=== PATIENT | female | born 1985 | race Caucasian/White ===

== ENCOUNTER → 2016-12-03 | Outpatient (CLI) | payer OTHER ==
[~2016-12-03] VITALS: Ht 165.1 cm; Wt 77.2 kg
[~2016-12-03] MED LIST: Motrin PO; PREFERA-OB P1 TABLET PO; Percocet 5/325,Endoc PO
[2016-12-03 11:08] VITALS: BP 130/78
== END | disposition home or self-care (01) ==
LOC: IVINF 10:50
DX: Z31.82 Encounter for Rh incompatibility status (principal); Z3A.28 28 weeks gestation of pregnancy
CPT/HCPCS: 96372; J2790

== ENCOUNTER 2017-01-20 17:13 | Outpatient (CLI) | payer OTHER ==
[2017-01-20 17:41] VITALS: BP 127/85
[2017-01-20 18:05] VITALS: BP 128/91
[2017-01-20 18:30] VITALS: BP 128/87
[2017-01-20 18:32] LABS: EOSINOPHIL (%) 1.3 % (0-5); EOSINOPHIL COUNT 0.2 K/uL (0-0.3); HEMATOCRIT 31.2 % (36.0-46.0); IMMATURE GRANULOCYTE (%) 0.9 % (0.0-0.7); IMMATURE GRANULOCYTE COUNT 0.1 K/uL; INSTRUMENT ABS NEUTROPHIL CT 11.6 K/uL; LYMPHOCYTE COUNT 2.4 K/uL (1.0-2.8); MCH 23.5 PG (29.0-34.0); MCHC 31.7 G/DL (30.0-36.0); MCV 74.1 FL (83-99); MEAN PLAT.VOLUME 10.4 uM^3 (9.5-12.4); MONOCYTE (%) 6.2 % (3-12); NEUTROPHIL (%) 75.9 % (45-76); NEUTROPHIL COUNT 11.6 K/uL (1.8-6.4); PLATELET COUNT 293 K/uL (156-360); RBC DIS.WIDTH-CV 14.2 % (11.8-14.6); RBC DIS.WIDTH-SD 37.8 % (39-53); RED BLOOD COUNT 4.21 M/uL (3.80-5.20); WHITE BLOOD COUNT 15.3 K/uL (4.1-10.2)
[2017-01-20 18:36] LABS: ANION GAP 9 MEQ/L (2-14); CHLORIDE 106 MEQ/L (99-109); POTASSIUM 3.7 MEQ/L (3.7-5.4); SAMPLE HEMOLYSIS CHECK 0; SAMPLE ICTERIC CHECK 0; SAMPLE LIPEMIA CHECK 0; SODIUM 136 MEQ/L (136-147); TOTAL BILIRUBIN 0.3 MG/DL (0.0-1.0)
[2017-01-20 18:42] LABS: ALKALINE PHOSPHATASE 115 IU/L (3-129); GFR ESTIMATE (CALCULATED) > 59 mL/min/; GLUCOSE 87 mg/dL (70-99); UREA NITROGEN (BUN) 7 mg/dL (9-23)
[2017-01-20 19:13] VITALS: BP 124/90
[2017-01-20 19:56] LABS: UR CREATININE CONCENTRATION 25.6 MG/DL
== END 2017-01-20 19:55 | disposition home or self-care (01) ==
LOC: LDRP-OP → 2WEST 17:16 → LDRP-OP 03-21 13:52
PROVIDERS: Advanced Practice Midwife
DX: O26.893 Other specified pregnancy related conditions, third trimester (principal); R03.0 Elevated blood-pressure reading, without diagnosis of hypertension; Z3A.35 35 weeks gestation of pregnancy; O34.219 Maternal care for unspecified type scar from previous cesarean delivery
CPT/HCPCS: 59025; 80053; 82570; 84156; 85025; G0378

== ENCOUNTER 2017-02-23 16:17 | Inpatient (IN) | payer OTHER ==
[~2017-02-23] VITALS: Ht 162.6 cm; Wt 85.0 kg
[2017-02-23] VITALS (7 sets, daily range): BP systolic 124–141; BP diastolic 88–102
[2017-02-23 18:27] LABS: BASOPHIL COUNT 0.1 K/uL (0-0.1); CHLORIDE 108 mEq/L (99-109); EOSINOPHIL COUNT 0.1 K/uL (0-0.3); HEMATOCRIT 31.1 % (36.0-46.0); IMMATURE GRANULOCYTE (%) 0.8 % (0.0-0.7); IMMATURE GRANULOCYTE COUNT 0.1 K/uL; INSTRUMENT ABS NEUTROPHIL CT 9.1 K/uL; LYMPHOCYTE COUNT 2.4 K/uL (1.0-2.8); MCH 21.3 PG (29.0-34.0); MCHC 30.9 G/DL (30.0-36.0); MEAN PLAT.VOLUME 11.3 uM^3 (9.5-12.4); MONOCYTE COUNT 0.9 K/uL (0-0.8); NEUTROPHIL (%) 72.2 % (45-76); NEUTROPHIL COUNT 9.1 K/uL (1.8-6.4); NRBC (%) 0.2 /100 WBC (0-0); PLATELET COUNT 319 K/uL (156-360); RBC DIS.WIDTH-CV 15.9 % (11.8-14.6); RBC DIS.WIDTH-SD 39.3 % (39-53); RED BLOOD COUNT 4.51 M/uL (3.80-5.20); WHITE BLOOD COUNT 12.7 K/uL (4.1-10.2)
[2017-02-23 18:28] LABS: SODIUM 137 mEq/L (136-147)
[2017-02-23 18:30] LABS: GLUCOSE 87 mg/dL (70-99)
[2017-02-23 18:31] LABS: ANION GAP 10 MEQ/L (2-14)
[2017-02-23 18:32] LABS: TOTAL BILIRUBIN 0.2 mg/dL (0.0-1.0)
[2017-02-23 18:33] LABS: ALKALINE PHOSPHATASE 147 IU/L (3-129); GFR ESTIMATE (CALCULATED) > 59 mL/min/
[2017-02-23 18:35] LABS: UREA NITROGEN (BUN) 10 mg/dL (9-23)
[2017-02-23 18:36] LABS: URIC ACID 4.9 mg/dL (3.1-9.2)
[2017-02-23 19:15] LABS: LACTATE DEHYDROGENASE 242 IU/L (20-246)
[2017-02-23 19:34] LABS: UR CREATININE CONCENTRATION 38.2 MG/DL
[2017-02-24] VITALS (20 sets, daily range): BP systolic 116–139; BP diastolic 71–101
[2017-02-25 03:14] VITALS: BP 108/58
[2017-02-25 07:10] VITALS: BP 122/76
[2017-02-25 09:20] LABS: EOSINOPHIL (%) 0.2 % (0-5); IMMATURE GRANULOCYTE (%) 0.7 % (0.0-0.7); IMMATURE GRANULOCYTE COUNT 0.1 K/uL; INSTRUMENT ABS NEUTROPHIL CT 13.3 K/uL; LYMPHOCYTE COUNT 2.4 K/uL (1.0-2.8); MCH 21.2 PG (29.0-34.0); MCHC 30.4 G/DL (30.0-36.0); MCV 69.9 FL (83-99); MEAN PLAT.VOLUME 10.7 uM^3 (9.5-12.4); MONOCYTE (%) 5.9 % (3-12); NEUTROPHIL (%) 78.7 % (45-76); NEUTROPHIL COUNT 13.3 K/uL (1.8-6.4); PLATELET COUNT 285 K/uL (156-360); RBC DIS.WIDTH-CV 15.9 % (11.8-14.6); RED BLOOD COUNT 3.72 M/uL (3.80-5.20); WHITE BLOOD COUNT 16.9 K/uL (4.1-10.2)
[2017-02-25 11:00] VITALS: BP 125/79
[2017-02-26 08:00] VITALS: BP 131/93
[2017-02-26] MEDS ORDERED: IBUPROFEN800 MG PO (08:57)
[2017-02-26] MEDS ORDERED: DOCUSATE SODIU100 MG PO (08:58)
[2017-02-26] MEDS ORDERED: ENDOCET 5-3251 EACH PO (08:58)
[2017-02-26] MEDS ORDERED: IRON325 M1 PO (09:00)
[2017-02-26] MEDS ORDERED: ASCORBIC ACID500 M3 PO (09:00)
[2017-02-26 11:34] VITALS: BP 130/79
== END 2017-02-26 16:38 | disposition home or self-care (01) | DRG 765 ==
LOC: LDRP-OP 16:17 → 2WEST 16:18 → LDRP-OP 03-21 20:46
PROVIDERS: Obstetrics & Gynecology
DX: O13.4 Gestational [pregnancy-induced] hypertension without significant proteinuria, complicating childbirth (principal); O34.211 Maternal care for low transverse scar from previous cesarean delivery; O63.0 Prolonged first stage (of labor); O99.824 Streptococcus B carrier state complicating childbirth; O14.94 Unspecified pre-eclampsia, complicating childbirth; O62.1 Secondary uterine inertia; O33.9 Maternal care for disproportion, unspecified; O61.9 Failed induction of labor, unspecified; O15.1 Eclampsia complicating labor; O99.02 Anemia complicating childbirth; O66.41 Failed attempted vaginal birth after previous cesarean delivery; D62 Acute posthemorrhagic anemia; Z37.0 Single live birth; Z3A.40 40 weeks gestation of pregnancy
CPT/HCPCS: 36415; 80053; 82570; 83615; 84156; 84550; 85025; 86850; 86870; 86900; 86901; 86920; J0690; J1885; J2274; J2405; J2540; J2765; J3010; J7120